=== PATIENT | female | born 1990 | race Two or more races ===

== ENCOUNTER 2016-11-25 08:40 | Emergency (ER) | payer OTHER, MEDICAID ==
[~2016-11-25] VITALS: Ht 162.6 cm; Wt 59.0 kg
[2016-11-25 08:44] VITALS: BP 122/77
== END 2016-11-25 08:56 | disposition home or self-care (01) ==
LOC: ER 08:42
DX: J02.0 Streptococcal pharyngitis (principal); B95.5 Unspecified streptococcus as the cause of diseases classified elsewhere
CPT/HCPCS: 99283; A4606; Z7610

== ENCOUNTER 2016-12-25 09:40 | Emergency (ER) | payer MEDICAID ==
[~2016-12-25] VITALS: Ht 162.6 cm; Wt 58.1 kg
--- NOTE | 2016-12-25 09:48 | NUR ---
PT BIB SELF C/O FEELING TIRED AND BODY ACHES X2 DAYS. RESP EVEN UNLABORED. SKIN WARM NONDIAPHORETIC. AMBULATORY WITH STEADY GAIT. NAD NOTED. PT THINKS SHE MAY BE ANEMIC. DENIES N/V/D. NO DYSURIA/HEMATURIA. IN ER BED 01.
--- NOTE | 2016-12-25 10:03 | NUR ---
DRYWALL APPLICATOR AT BEDSIDE
[2016-12-25 10:10] LABS: BASOPHILS % (AUTO) 1.1 % (0.0-2.0); EOSINOPHILS % (AUTO) 1.1 % (0.0-6.0); HEMATOCRIT 38 % (33-45); HEMOGLOBIN 12.8 g/dL (11.5-14.8); LYMPHOCYTES # (AUTO) 1.5 /CMM (0.8-4.8); MEAN CORPUSCULAR HEMOGLOBIN 30 PG (26.0-33.0); MEAN CORPUSCULAR HGB CONC 34 g/dl (31.0-36.0); MEAN CORPUSCULAR VOLUME 87 fL (82-100); MONOCYTES # (AUTO) 0.3 /CMM (0.1-1.30); NEUTROPHILS # (AUTO) 1.9 /CMM (1.8-8.9); NEUTROPHILS % (AUTO) 49.8 % (43.0-81.0); PLATELET COUNT (AUTO) 228 /CMM (150-450); RDW COEFFICIENT OF VARIATION 11.9 (11.5-15.0); RED BLOOD CELL COUNT(AUTO) 4.31 MIL/uL (4.0-5.2); WHITE BLOOD COUNT (AUTO) 3.7 K/uL (4.3-11.0)
[2016-12-25 10:17] LABS: APPEARANCE,URINE Clear (CLEAR); BILIRUBIN,URINE Negative (NEGATIVE); BLOOD, URINE Trace-intact Ery/uL (NEGATIVE); COLOR,URINE Yellow (YELLOW); KETONES,URINE Negative (NEGATIVE); LEUKOCYTE ESTERASE ,URINE Negative (NEGATIVE); NITRITE, URINE Negative (NEGATIVE); PROTEIN,URINE Negative (NEGATIVE); UGLUCOSE Negative (NEGATIVE); UROBILINOGEN,URINE 0.2 EU/dL (0.2)
[2016-12-25 10:19] LABS: CALCIUM, SERUM 9.1 mg/dL (8.5-10.1); CREATININE 0.7 mg/dL (0.6-1.3); POTASSIUM 3.7 mmol/L (3.5-5.1)
[2016-12-25 10:24] LABS: PREGNANCY TEST URINE QUAL NEGATIVE (NEGATIVE)
[2016-12-25 10:30] LABS: ADD URINE CULTURE NO; BACTERIA,URINE Rare /HPF (None Seen); RBC,URINE 0-2 /HPF (0-2); SQUAMOUS EPITHELIAL CELL,UR Few /HPF (None Seen); WBC,URINE 0-2 /HPF (0-3)
--- NOTE | 2016-12-25 10:55 | NUR ---
Patient discharged to home in stable condition. Written and verbal after care instructions given. Patient verbalizes understanding of instruction.
[2016-12-25 10:56] VITALS: BP 127/84
== END 2016-12-25 10:56 | disposition home or self-care (01) ==
LOC: ER 09:42
DX: R53.1 Weakness (principal); D64.9 Anemia, unspecified; Z98.890 Other specified postprocedural states
CPT/HCPCS: 36415; 80048; 81001; 84443; 84703; 85025; 87086; 93005; 99285; A4606; Z7610; 81000-TC

== ENCOUNTER 2017-09-04 22:40 | Emergency (ER) | payer MEDICAID ==
[~2017-09-04] VITALS: Ht 165.1 cm; Wt 59.0 kg
[2017-09-04 22:41] VITALS: BP 115/64
[2017-09-04] MEDS ORDERED: PENICILLIN V POTASSIUM 500 MG TABLET PO ONE ×2 (23:21→23:30)
== END 2017-09-04 23:28 | disposition home or self-care (01) ==
LOC: ER 22:43
DX: J03.00 Acute streptococcal tonsillitis, unspecified (principal)
CPT/HCPCS: 99283; A4606; Z7610

== ENCOUNTER 2018-06-13 05:56 | Emergency (ER) | payer MEDICAID ==
[~2018-06-13] VITALS: Ht 170.2 cm; Wt 74.8 kg
--- NOTE | 2018-06-13 06:10 | NUR ---
Pt BIBSELF FROM HOME ACCOMPANIED BY MOTHER. Pt C/O SORE THROAT THAT WAS SIMILAR TO WHEN SHE HAD STREP THROAT. Pt IS A/OX4, VERBAL, ABLE TO MAKE NEEDS KNOWN. NO S/S OF ACUTE DISTRESS OR SOB NOTED. SEEN BY .
--- NOTE | 2018-06-13 06:56 | NUR ---
STREP THROAT CULTURE SWAB COLLECTED AND SENT TO LAB
[2018-06-13] MEDS ORDERED: ACETAMINOPHEN ES 500 MG TABLET ONE (06:59)
[2018-06-13] MEDS ORDERED: ACETAMINOPHEN ES 500 MG TABLET PO ONE (07:00)
[2018-06-13] MEDS ORDERED: IBUPROFEN 600 MG TABLET PO ONE ×2 (07:00)
--- NOTE | 2018-06-13 07:02 | NUR ---
ALL ORDERED MEDS GIVEN
--- NOTE | 2018-06-13 07:06 | NUR ---
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 CLEARED Pt FOR DISCHARGE. TOLD Pt SHE CAN CALL [facility] TO GET HER STREP THROAT CULTURE RESULTS LATER TODAY, AND EXPLAINED THAT IF THE TEST RESULTS POSITIVE THEN Pt WILL HAVE TO COME BACK TO THE HOSPITAL IF SHE WANTS ANTIBIOTICS PRESCRIBED TO HER, PATIENT UNDERSTOOD AND AGREED. PATIENT WAS THEN DISCHARGED TO HOME IN STABLE CONDITION. WRITTEN AND VERBAL AFTER CARE INSTRUCTIONS GIVEN. PATIENT VERBALIZES UNDERSTANDING OF INSTRUCTION.
[2018-06-13 07:16] VITALS: BP 128/74
--- NOTE | 2018-06-13 08:46 | NUR ---
called [phone]; cell phone - left a message to call the ER at [phone]. ER MD was notified
== END 2018-06-13 07:17 | disposition home or self-care (01) ==
LOC: ER 05:56
DX: J02.9 Acute pharyngitis, unspecified (principal); Z98.890 Other specified postprocedural states
CPT/HCPCS: 87880; 99283; A4606; Z7610; 86403-TC

== ENCOUNTER 2019-05-02 11:03 | Emergency (ER) | payer MEDICAID ==
[2019-05-02] MEDS ORDERED: MAG HYDROX/AL HYDROX/SIMETH 30 ML UDC ONE (11:39)
[2019-05-02] MEDS ORDERED: LIDOCAINE VISCOUS 2% UD 15 ML UDC ONE (11:39)
[2019-05-02] MEDS ORDERED: MAG HYDROX/AL HYDROX/SIMETH 30 ML UDC PO ONE (12:00)
[2019-05-02] MEDS ORDERED: LIDOCAINE VISCOUS 2% UD 15 ML UDC MM ONE (12:00)
== END 2019-05-02 13:18 | disposition home or self-care (01) ==
DX: K29.70 Gastritis, unspecified, without bleeding (principal); Z98.890 Other specified postprocedural states